=== PATIENT | male | born 1960 | race Two or more races ===

== ENCOUNTER 2020-11-04 20:33 | Inpatient (IN) | payer OTHER ==
[~2020-11-04] VITALS: Ht 175.3 cm; Wt 137.2 kg
[2020-11-04 21:41] LABS: BASOPHILS % (AUTO) 0.2 % (0.0-2.0); EOSINOPHILS % (AUTO) 0.6 % (1.0-6.0); HEMATOCRIT 38.4 % (41-53); HEMOGLOBIN 13.2 g/dL (13.5-17.5); LYMPHOCYTES # (AUTO) 0.6 K/uL (1.0-4.8); LYMPHOCYTES % (AUTO) 5.4 % (22.0-44.0); MEAN CORPUSCULAR HGB CONC 34.3 G/dL (31.0-37.0); MEAN CORPUSCULAR VOLUME 105 fL (80-100); MONOCYTES # (AUTO) 0.8 K/uL (0.1-1.0); MONOCYTES % (AUTO) 7.4 % (2.0-9.0); NEUTROPHILS # (AUTO) 9.2 K/uL (1.8-7.7); NEUTROPHILS % (AUTO) 86.4 % (40.0-70.0); PLATELET COUNT (AUTO) 111 K/uL (150-450); RED BLOOD CELL COUNT(AUTO) 3.66 MIL/uL (4.50-5.90); RED CELL DISTRIBUTION WIDTH 16.7 % (11.5-14.5)
[2020-11-04 21:52] LABS: ANION GAP 8 mmol/L (8-16); CALCIUM, TOTAL 8.2 mg/dL (8.8-10.5); CARBON DIOXIDE 25 mmol/L (22-29); CHLORIDE 107 mmol/L (98-107); CREATININE 0.84 mg/dL (0.60-1.30); GLOMERULAR FILTR. RATE CALC > 60 mL/min (>60); GLUCOSE,RANDOM 104 mg/dL (70-110); POTASSIUM 4.5 mmol/L (3.5-5.1); SODIUM SERUM 140 mmol/L (136-145); UREA NITROGEN, BLOOD 12 mg/dL (7-18)
[2020-11-04 21:56] LABS: COVID AG,FIA SOURCE NASOPHARYNGEAL
[2020-11-04 21:59] LABS: ALANINE AMINOTRANSFERASE 37 U/L (12-78); ALBUMIN 2.4 g/dL (3.4-5.0); ALKALINE PHOSPHATASE 144 U/L (46-116); ASPARTATE AMINOTRANSFERASE 76 U/L (15-37); BILIRUBIN,TOTAL 3.6 mg/dL (0.1-1.0); TOTAL PROTEIN, SERUM 5.8 g/dL (6.4-8.2)
[2020-11-04 22:02] LABS: B-TYPE NATRIURETIC PEPTIDE 178 pg/mL (0-100)
[2020-11-05] MEDS ORDERED: IOHEXOL 350 MG/ML 150 ML VIAL ONE (00:53)
[2020-11-05] MEDS ORDERED: SODIUM CHLORIDE 0.9% 100 ML ONE (00:53)
[2020-11-05] MEDS ORDERED: ASPIRIN 81 MG CHEWABLE TABLET PO SCH (05:15)
[2020-11-05] MEDS ORDERED: ONDANSETRON HCL 4 MG/2 ML VIAL IVP PRN (05:15)
[2020-11-05] MEDS ORDERED: ACETAMINOPHEN 325 MG TABLET PO PRN (05:15)
[2020-11-05] MEDS: CefTRIAXone 1 GM/DEXTROSE 50 ML IV SCH (06:10)
[2020-11-05] MEDS: AZITHROMYCIN 500 MG/NS 250 ML IV SCH (06:16)
[2020-11-05] MEDS: MULTIVITAMINS, THERAPEUTIC TABLET PO SCH (07:22)
[2020-11-05] MEDS: FUROSEMIDE 20 MG TABLET PO SCH (07:22)
[2020-11-05] MEDS: HEPARIN SODIUM,PORCINE 5,000 UNITS/ML VIAL SQ SCH ×2 (07:23→16:57)
[2020-11-05] MEDS: SPIRONOLACTONE 50 MG TABLET PO SCH ×2 (09:00→21:00)
[2020-11-05 09:55] VITALS: BP 127/62
[2020-11-05 12:23] VITALS: BP 98/60
[2020-11-05 16:26] VITALS: BP 117/67
[2020-11-05 20:05] VITALS: BP 130/60
[2020-11-06] VITALS (7 sets, daily range): BP systolic 106–133; BP diastolic 6–75
[2020-11-06] MEDS: HEPARIN SODIUM,PORCINE 5,000 UNITS/ML VIAL SQ SCH ×4 (00:08→23:50)
[2020-11-06] MEDS ORDERED: SODIUM CHLORIDE 0.9% 250 ML IV ONE (04:06)
[2020-11-06] MEDS: CefTRIAXone 1 GM/DEXTROSE 50 ML IV SCH (05:06)
[2020-11-06 05:44] LABS: BASOPHILS % (AUTO) 0.2 % (0.0-2.0); EOSINOPHILS % (AUTO) 2.3 % (1.0-6.0); HEMATOCRIT 37.4 % (41-53); HEMOGLOBIN 12.6 g/dL (13.5-17.5); LYMPHOCYTES # (AUTO) 1.5 K/uL (1.0-4.8); LYMPHOCYTES % (AUTO) 25.7 % (22.0-44.0); MEAN CORPUSCULAR HEMOGLOBIN 35.6 pg (26.0-34.0); MEAN CORPUSCULAR HGB CONC 33.8 G/dL (31.0-37.0); MEAN CORPUSCULAR VOLUME 105 fL (80-100); MONOCYTES % (AUTO) 16.1 % (2.0-9.0); NEUTROPHILS # (AUTO) 3.3 K/uL (1.8-7.7); NEUTROPHILS % (AUTO) 55.7 % (40.0-70.0); RED BLOOD CELL COUNT(AUTO) 3.55 MIL/uL (4.50-5.90); RED CELL DISTRIBUTION WIDTH 16.9 % (11.5-14.5)
[2020-11-06 05:58] LABS: ANION GAP 4 mmol/L (8-16); CALCIUM, TOTAL 7.8 mg/dL (8.8-10.5); CARBON DIOXIDE 29 mmol/L (22-29); CHLORIDE 107 mmol/L (98-107); CREATININE 0.71 mg/dL (0.60-1.30); GLOMERULAR FILTR. RATE CALC > 60 mL/min (>60); GLUCOSE,RANDOM 92 mg/dL (70-110); POTASSIUM 3.5 mmol/L (3.5-5.1); SODIUM SERUM 140 mmol/L (136-145); UREA NITROGEN, BLOOD 11 mg/dL (7-18)
[2020-11-06] MEDS: AZITHROMYCIN 500 MG/NS 250 ML IV SCH (06:05)
[2020-11-06 07:05] LABS: PLATELET COUNT (AUTO) 100 K/uL (150-450)
[2020-11-06] MEDS: SPIRONOLACTONE 50 MG TABLET PO SCH ×2 (08:36→20:50)
[2020-11-06] MEDS: ASPIRIN 81 MG CHEWABLE TABLET PO SCH (08:37)
[2020-11-06] MEDS: MULTIVITAMINS, THERAPEUTIC TABLET PO SCH (08:37)
[2020-11-06] MEDS: FUROSEMIDE 20 MG TABLET PO SCH (08:37)
[2020-11-06] MEDS ORDERED: MAGNESIUM SULFATE 4 GM/WATER 100 ML IV ONE (12:00)
[2020-11-06] MEDS: MELATONIN 3 MG TABLET PO PRN (23:50)
[2020-11-07] VITALS (7 sets, daily range): BP systolic 96–124; BP diastolic 55–79
[2020-11-07] MEDS: CefTRIAXone 1 GM/DEXTROSE 50 ML IV SCH (04:59)
[2020-11-07] MEDS: AZITHROMYCIN 500 MG/NS 250 ML IV SCH (05:41)
[2020-11-07 06:30] LABS: BASOPHILS % (AUTO) 0.2 % (0.0-2.0); EOSINOPHILS % (AUTO) 3.4 % (1.0-6.0); HEMATOCRIT 37.2 % (41-53); HEMOGLOBIN 12.5 g/dL (13.5-17.5); LYMPHOCYTES # (AUTO) 1.5 K/uL (1.0-4.8); LYMPHOCYTES % (AUTO) 26.1 % (22.0-44.0); MEAN CORPUSCULAR HEMOGLOBIN 35.6 pg (26.0-34.0); MEAN CORPUSCULAR HGB CONC 33.6 G/dL (31.0-37.0); MEAN CORPUSCULAR VOLUME 106 fL (80-100); MONOCYTES # (AUTO) 1.1 K/uL (0.1-1.0); NEUTROPHILS % (AUTO) 51.3 % (40.0-70.0); RED BLOOD CELL COUNT(AUTO) 3.51 MIL/uL (4.50-5.90); RED CELL DISTRIBUTION WIDTH 16.4 % (11.5-14.5)
[2020-11-07 06:55] LABS: ALANINE AMINOTRANSFERASE 32 U/L (12-78); ALKALINE PHOSPHATASE 111 U/L (46-116); ANION GAP 4 mmol/L (8-16); ASPARTATE AMINOTRANSFERASE 49 U/L (15-37); BILIRUBIN,TOTAL 1.2 mg/dL (0.1-1.0); CALCIUM, TOTAL 7.7 mg/dL (8.8-10.5); CARBON DIOXIDE 27 mmol/L (22-29); CHLORIDE 111 mmol/L (98-107); GLOMERULAR FILTR. RATE CALC > 60 mL/min (>60); GLUCOSE,RANDOM 96 mg/dL (70-110); POTASSIUM 4.2 mmol/L (3.5-5.1); SODIUM SERUM 142 mmol/L (136-145); TOTAL PROTEIN, SERUM 4.9 g/dL (6.4-8.2); UREA NITROGEN, BLOOD 9 mg/dL (7-18)
[2020-11-07] MEDS: HEPARIN SODIUM,PORCINE 5,000 UNITS/ML VIAL SQ SCH ×2 (08:15→16:22)
[2020-11-07] MEDS: FUROSEMIDE 20 MG TABLET PO SCH ×2 (08:15→14:12)
[2020-11-07] MEDS: MULTIVITAMINS, THERAPEUTIC TABLET PO SCH (08:15)
[2020-11-07] MEDS: SPIRONOLACTONE 50 MG TABLET PO SCH ×3 (08:15→20:41)
[2020-11-07] MEDS: ASPIRIN 81 MG CHEWABLE TABLET PO SCH (08:15)
[2020-11-07 09:36] LABS: PLATELET COUNT (AUTO) 84 K/uL (150-450)
[2020-11-07] MEDS: MELATONIN 3 MG TABLET PO PRN (20:39)
[2020-11-08 03:38] VITALS: BP 107/68
[2020-11-08] MEDS: CefTRIAXone 1 GM/DEXTROSE 50 ML IV SCH (04:30)
[2020-11-08] MEDS: AZITHROMYCIN 500 MG/NS 250 ML IV SCH (05:37)
[2020-11-08 06:26] LABS: HEMATOCRIT 37.5 % (41-53); HEMOGLOBIN 12.6 g/dL (13.5-17.5); MEAN CORPUSCULAR HEMOGLOBIN 35.5 pg (26.0-34.0); MEAN CORPUSCULAR HGB CONC 33.6 G/dL (31.0-37.0); MEAN CORPUSCULAR VOLUME 106 fL (80-100); PLATELET COUNT (AUTO) 91 K/uL (150-450); RED BLOOD CELL COUNT(AUTO) 3.54 MIL/uL (4.50-5.90); RED CELL DISTRIBUTION WIDTH 16.8 % (11.5-14.5)
[2020-11-08 06:58] VITALS: BP 113/85
[2020-11-08 07:08] LABS: ALANINE AMINOTRANSFERASE 34 U/L (12-78); ALBUMIN 2.2 g/dL (3.4-5.0); ALKALINE PHOSPHATASE 102 U/L (46-116); ANION GAP 3 mmol/L (8-16); ASPARTATE AMINOTRANSFERASE 49 U/L (15-37); BILIRUBIN,TOTAL 1.5 mg/dL (0.1-1.0); CALCIUM, TOTAL 8.2 mg/dL (8.8-10.5); CARBON DIOXIDE 28 mmol/L (22-29); CHLORIDE 109 mmol/L (98-107); CREATININE 0.63 mg/dL (0.60-1.30); GLOMERULAR FILTR. RATE CALC > 60 mL/min (>60); GLUCOSE,RANDOM 80 mg/dL (70-110); POTASSIUM 4.2 mmol/L (3.5-5.1); SODIUM SERUM 140 mmol/L (136-145); TOTAL PROTEIN, SERUM 5.3 g/dL (6.4-8.2); UREA NITROGEN, BLOOD 11 mg/dL (7-18)
[2020-11-08 08:12] LABS: BAND NEUTROPHILS % (MANUAL) 1 % (0-5); LYMPHOCYTES % (MANUAL) 50 % (22-44); MONOCYTES % (MANUAL) 4 % (2-9); SEGMENTED NEUTROPHILS % 45 % (40-70)
[2020-11-08] MEDS: MULTIVITAMINS, THERAPEUTIC TABLET PO SCH (08:20)
[2020-11-08] MEDS: FUROSEMIDE 20 MG TABLET PO SCH (08:20)
[2020-11-08] MEDS: HEPARIN SODIUM,PORCINE 5,000 UNITS/ML VIAL SQ SCH ×3 (08:20→16:33)
[2020-11-08] MEDS: ASPIRIN 81 MG CHEWABLE TABLET PO SCH (08:20)
[2020-11-08 08:30] VITALS: BP 127/65
[2020-11-08] MEDS: SPIRONOLACTONE 50 MG TABLET PO SCH ×2 (10:57→20:23)
[2020-11-08] MEDS ORDERED: FINA-27 PO (12:34)
[2020-11-08] MEDS ORDERED: TAMS-13 PO (12:34)
[2020-11-08] MEDS ORDERED: RIFAX550 PO (12:34)
[2020-11-08] MEDS ORDERED: PROP20TA18 PO (12:34)
[2020-11-08] MEDS ORDERED: FURO80 PO (12:34)
[2020-11-08] MEDS ORDERED: LACT30L PO (12:34)
[2020-11-08] MEDS ORDERED: MOM30 PO (12:34)
[2020-11-08] MEDS ORDERED: POTA20TA83 PO (12:34)
[2020-11-08] MEDS ORDERED: CHOL-35 PO (12:34)
[2020-11-08] MEDS ORDERED: ACET-3207 PO (13:11)
[2020-11-08] MEDS ORDERED: ACET-2247 PO (13:15)
[2020-11-08 20:27] VITALS: BP 124/76
== END 2020-11-08 21:00 | DRG 193 ==
LOC: EMS 20:40 → 5S 11-05 05:00 → 5N 11-05 10:39 → 5S 11-07 14:30 → 6S 11-08 06:19
PROVIDERS: ADMIT Internal Medicine; ATTEND Internal Medicine
DX: J18.9 Pneumonia, unspecified organism (principal); E43 Unspecified severe protein-calorie malnutrition; K76.6 Portal hypertension; Z68.41 Body mass index [BMI] 40.0-44.9, adult; Z20.822 Contact with and (suspected) exposure to COVID-19; E66.01 Morbid (severe) obesity due to excess calories; I50.9 Heart failure, unspecified; E83.42 Hypomagnesemia; K74.60 Unspecified cirrhosis of liver; I86.4 Gastric varices; B19.20 Unspecified viral hepatitis C without hepatic coma; K58.9 Irritable bowel syndrome, unspecified; K72.90 Hepatic failure, unspecified without coma; G89.4 Chronic pain syndrome; N40.0 Benign prostatic hyperplasia without lower urinary tract symptoms; Z82.49 Family history of ischemic heart disease and other diseases of the circulatory system
CPT/HCPCS: 71045; 71275; 76700; 80048; 80053; 83605; 83735; 83880; 84484; 85025; 85379; 87040; 93005; 93306; 93970; 99285; A9575; J0456; J0696; J1644; J3475; J7050; 36415-L1; 36415-TC; U0003